=== PATIENT | female | born 1985 | race Caucasian/White ===

== ENCOUNTER 2020-05-23 06:36 | Outpatient (CLI) | payer OTHER ==
[2020-05-23 10:52] LABS: Hemoglobin 11.9 g/dL (12.0-16.0); Mean Corpuscular HGB CONC 32.2 G/DL (32.0-36.0); Mean Corpuscular Hemoglobin 28.7 PG (27.0-33.0); Mean Corpuscular Volume 89.2 fl (80.0-100.0); Mean Platelet Volume 8.9 fl (7.4-10.4); Platelet Count 261 10x3/uL (130-400); RBC Distribution Width 13.3 % (11.5-14.5); Red Blood Cell (RBC) Count 4.15 10x6/uL (3.90-5.20); White Blood Cell (WBC) Count 8.7 10x3/uL (4.5-11.0)
[2020-05-23 10:58] LABS: Bilirubin Neg (Negative); Blood, Urine 250 (Negative); Glucose, Urine (Dipstick) Normal (Negative); Ketone, Urine 5 mg/dL (Negative); Leukocyte 500 (Negative); Nitrite Negative (Negative); Protein, Urine (Dipstick) 500 mg/dl (Neg-Trace); Specific Gravity, Urine 1.025 (1.002-1.036); Urobilinogen Normal mg/dL (Less than 2)
[2020-05-23 11:02] LABS: Clarity Cloudy (Clear)
[2020-05-23 11:10] LABS: RBC/HPF Greater than 50 HPF (0-3); WBC/HPF Greater than 50 HPF (0-3)
[2020-05-23 11:12] LABS: Bacteria/HPF 3+ HPF (None Seen)
[2020-05-23 11:17] LABS: Anion Gap 14 mmol/L (10-20); BUN (Urea Nitrogen) 14 mg/dL (7.0-18.7); Calc. Creatinine Clearance 0 mL/min (70-130); Calcium 8.7 mg/dL (7.8-10.44); Carbon Dioxide 25 mmol/L (22-29); Chloride 104 mmol/L (98-107); Estimated GFR-MDRD 81; Glucose 95 mg/dL (70-105); Potassium 3.8 mmol/L (3.5-5.1); Sodium 139 mmol/L (136-145)
[2020-05-23 23:00] LABS: SARS-CoV-2 MS2 Positive; SARS-CoV-2 N Gene Negative; SARS-CoV-2 S Gene Negative; SARS-CoV-2 by NAA Not Detected (NotDetected); SARS-CoV-2 orf1ab Negative
== END 2020-05-23 06:37 | disposition home or self-care (01) ==
LOC: LABBT 06:36
PROVIDERS: ATTEND Urology
DX: Z01.812 Encounter for preprocedural laboratory examination (principal); Z20.828 Contact with and (suspected) exposure to other viral communicable diseases
CPT/HCPCS: 80048; 81001; 85027; 87086; 87635; U0003

== ENCOUNTER 2020-05-28 10:15 | Day surgery (SDC) | payer OTHER ==
[2020-05-27 11:00] VITALS: BMI 34.5
[2020-05-28] MEDS ORDERED: Metoclopramide HCl 10 MG/2 ML VIAL ONE (10:43)
[2020-05-28] MEDS ORDERED: Ondansetron PF 4 MG/2 ML Vial ONE (10:43)
[2020-05-28] MEDS ORDERED: PHENYLEPHRINE-NS 100 MCG/ML 10 ML SYRINGE ONE (10:43)
[2020-05-28] MEDS ORDERED: Dexamethasone 20 MG/5 ML VIAL ONE (10:43)
[2020-05-28] MEDS ORDERED: Lidocaine 1% PF 5 ML VIAL ONE (10:43)
[2020-05-28] MEDS ORDERED: PROPOFOL 200 MG/20 ML VIAL ONE (10:43)
[2020-05-28] MEDS ORDERED: Morphine 4 MG/ML VIAL ONE (12:43)
[2020-05-28] MEDS ORDERED: Levofloxacin 500 mg/D5W 100 ml Premix Bag ONE (12:43)
[2020-05-28] MEDS ORDERED: diphenhydrAMINE 50 MG/ML VIAL ONE (12:50)
[2020-05-28] MEDS ORDERED: Fentanyl 100 MCG/2 ML VIAL ONE (14:07)
[2020-05-28] MEDS ORDERED: Midazolam HCl 2 mg/2 ml Vial ONE (14:07)
[2020-05-28] MEDS ORDERED: Famotidine/PF 20 mg/2ml Vial ONE (14:07)
[2020-05-28] MEDS ORDERED: Iothalamate Meglumine 60% 50 ML VIAL FS ONE (14:15)
[2020-05-28] MEDS ORDERED: Oxybutynin 5 MG TAB ONE (15:17)
[2020-05-28] MEDS ORDERED: Ketorolac Tromethamine 30 MG/ML VIAL ONE (15:17)
--- NOTE | 2020-05-28 15:24 | RAD ---
XR IVP Retrograde History: Stone manipulation with stent Comparison: None. Findings: Single fluoroscopic images image was obtained with an indwelling right double-J ureteral st ent. Impression: Fluoroscopy for procedure purposes.
[2020-05-28] MEDS ORDERED: HYDROcodone/Acetaminophen 5/325 mg Tablet ONE (15:52)
--- NOTE | 2020-05-28 20:39 | OP ---
DATE OF PROCEDURE: 05/28/2020 PREOPERATIVE DIAGNOSIS: Right renal stone. POSTOPERATIVE DIAGNOSIS: Right proximal ureteral stone. PROCEDURES PERFORMED: Right ureteroscopy, laser lithotripsy, retrograde pyelogram, intraoperative interpretation of radiologic imaging, 4.8 x 24 double-J ureteral stent placement with strings. ANESTHESIA: General. COMPLICATIONS: None. BLOOD LOSS: Minimal. SPECIMEN: None. DESCRIPTION OF PROCEDURE: After informed consent, the patient was taken to the operating room, transferred to the table on her own power. Anesthesia was established. A time-out was performed ensuring the correct patient, site, and procedure. Preoperative antibiotics were administered. She was prepped and draped in the lithotomy position. A rigid cystoscope was advanced through the urethra into the bladder. The indwelling stent was grasped and brought out through the urethral meatus. A wire was passed through this into the renal pelvis under fluoroscopic guidance. An access sheath was placed over the wire into the proximal ureter and a retrograde pyelogram performed through this, showing a filling defect at the UPJ/proximal most aspect of the ureter with no significant hydronephrosis beyond. The flexible ureteroscope was passed through the access sheath into the proximal ureter, where the stone was encountered. The stone was treated with the 200-micron laser fiber, dusting it in its entirety. There were no clinically significant stone fragments upon completion. The renal pelvis was completely examined, again noting no clinically significant stone fragments. The renal pelvis was then filled with contrast. The scope was withdrawn. A wire left in place as the access sheath was removed. A 4.8 x 24 double-J ureteral stent with strings was passed over the wire with a curl in the kidney and curl in the bladder under fluoroscopic guidance. The strings were taped to her suprapubic region for her to remove in 5 days. She was then awoken from anesthesia, transferred back to her hospital bed, and taken to PACU in stable condition, where she will discharge home upon recovery. Job ID: [id number]
== END 2020-05-28 17:40 | disposition home or self-care (01) ==
LOC: SDC 10:15
PROVIDERS: ATTEND Urology
PROC: 0TC68ZZ Extirpation of Matter from Right Ureter, Via Natural or Artificial Opening Endoscopic (ICD-10-PCS; principal; 2020-05-28)
PROC: 0T768DZ Dilation of Right Ureter with Intraluminal Device, Via Natural or Artificial Opening Endoscopic (ICD-10-PCS; principal; 2020-05-28)
DX: N20.1 Calculus of ureter (principal); I10 Essential (primary) hypertension; G43.909 Migraine, unspecified, not intractable, without status migrainosus; D64.9 Anemia, unspecified; F31.9 Bipolar disorder, unspecified; F41.9 Anxiety disorder, unspecified; F43.10 Post-traumatic stress disorder, unspecified; Z79.899 Other long term (current) drug therapy; Z88.5 Allergy status to narcotic agent; Z91.041 Radiographic dye allergy status
CPT/HCPCS: 74420; J1100; J1200; J1885; J1956; J2250; J2270; J2405; J2704; J2765; J3010; S0028